=== PATIENT | male | born 2000 | race Caucasian/White ===

== ENCOUNTER → 2020-05-10 | Outpatient (CLI) | payer OTHER ==
[~2020-05-10] MED LIST: LORTABELXR PO; ZOFRAN ODT4 MG PO
== END ==
LOC: M.MRI 08:15
PROVIDERS: ATTEND Orthopaedic Surgery Sports Medicine
DX: M47.812 Spondylosis without myelopathy or radiculopathy, cervical region (principal); M89.38 Hypertrophy of bone, other site; M48.02 Spinal stenosis, cervical region